=== PATIENT | female | born 1970 | race Caucasian/White ===

== ENCOUNTER 2019-05-05 17:45 | Emergency (ER) | payer OTHER ==
[2019-05-05 17:49] VITALS: RESP 18; TEMP 98
--- NOTE | 2019-05-05 19:36 | XR ---
PROCEDURE: XR foot complete RT - 3V DATE AND TIME: 05/05/2019 6:42 PM CLINICAL INDICATION: PHH; pain swelling TECHNIQUE: Department protocol COMPARISON: None FINDINGS: There is no fracture or malalignment. The soft tissues are unremarkable. IMPRESSION: NO ACUTE PROCESS.
--- NOTE | 2019-05-05 19:54 | ED ---
Lower Extremity Injury HPI - General Chief Complaint: Extremity Injury, Lower Stated Complaint: ankle swelling Time Seen by Provider: 05/05/19 17:57 Source: patient Mode of arrival: ambulatory Limitations: no limitations - History of Present Illness Initial Comments: 48-year-old female presented for right ankle swelling. Patient states the medial aspect of her ankle swollen. Patient states that the medial aspect of her ankle and as well as ankle joint is tender especially with range of motion she states she has some slight tenderness with weightbearing. Today patient states she has able to walk around. Patient states she does not know why the swelling started. She states she noticed it today. Patient denies swollen calf pain or calf she denies history of DVT pulmonary embolism she denies recent travel surgical procedures or CONSCIOUSNESS hormone use does improve with control use denies any family history of clotting disorders. Patient denies history of active cancer. Patient denies IV drug use. Patient has a chest pain shortness of breath. Patient denies any redness or warmth of the area. Patient states she is not sure if she did injure the area however she does do a lot of walking. Patient denies pain further history of gout. Patient is afebrile flulike symptoms. Patient is a difficulty lying flat or any other associated symptoms. Remaining review of system negative. - Related Data Previous Rx's Medication Instructions Recorded Ibuprofen 800 mg PO Q8H PRN 7 Days #21 tablet 05/05/19 Allergies Allergy/AdvReac Type Severity Reaction Status Date / Time codeine Allergy Swelling Verified 05/05/19 17:49 Penicillins Allergy Swelling Verified 05/05/19 17:49 Review of Systems ROS Statement: Those systems with pertinent positive or pertinent negative responses have been documented in the HPI. ROS Other: All systems not noted in ROS Statement are negative. Past Medical History Past Medical History: Asthma History of Any Multi-Drug Resistant Organisms: None Reported Past Surgical History: No Surgical Hx Reported Past Psychological History: No Psychological Hx Reported Smoking Status: Never smoker Past Alcohol Use History: Occasional Past Drug Use History: Marijuana General Exam - General Exam Comments Initial Comments: General: The patient is awake and alert, in no distress, and does not appear ac utely ill. Eye: Pupils are equal, round and reactive to light, extra-ocular movements are intact. No nystagmus. There is normal conjunctiva bilaterally. No signs of icterus. Cardiovascular: There is a regular rate and rhythm. No murmur, rub or gallop is appreciated. Respiratory: Lungs are clear to auscultation, respirations are non-labored, breath sounds are equal. No wheezes, stridor, rales, or rhonchi. Musculoskeletal: Normal ROM, no tenderness of the left ankle patient does have some tenderness of the dorsum of the right ankle. Mild soft tissue swelling noticed over the medial malleolus Strength 5/5. Sensation intact. DP pulses equal bilaterally 2+. Neurological: A&O x 3. CN II-XII intact grossly, There are no obvious motor or sensory deficits. Coordination appears grossly intact. Speech is normal. Skin: Skin is warm and dry and no rashes or lesions are noted. Negative Homans no pain to palpation of the calves bilaterally. No masses palpable or calf swelling noted. Psychiatric: Cooperative, appropriate mood & affect, normal judgment. Limitations: no limitations Course Vital Signs 05/05/19 05/05/19 17:46 20:23 Temperature 98 F 98 F Pulse Rate 77 80 Respiratory 18 18 Rate Blood Pressure 140/61 131/66 O2 Sat by Pulse 97 96 Oximetry Medical Decision Making - Medical Decision Making 48-year-old female presenting for atraumatic no known injury of the right ankle. States it is tender on the medial malleolus. Patient states her could've been injury but she is not sure of what exactly happened. Patient has no redness of the joint. Patient is able to range no pain out of proportion. Negative Homans. Patient has low wells score for deep venous thrombosis. D-dimer less than 0.5. At this time I do have low suspicion for blood clot. X-rays were negative for osseous process. At this time do feel patient is stable for discharge with rice instruction patient is to follow-up with primary care provider in 2 days for this complaint. Patient is agreeable to this care plan discharge at this time for my prescription for ibuprofen 800 mg. Did discuss the case by attending provider Dr. Paulino who is agreeable with this care plan. - Lab Data Lab Results 05/05/19 Range/Units 18:48 D-Dimer 0.45 (<0.60) mg/L FEU Disposition Clinical Impression: Right ankle swelling, Right ankle pain Disposition: HOME SELF-CARE Condition: Good Instructions (If sedation given, give patient instructions): R.I.C.E. Treatment (ED) Additional Instructions: Please use medication as discussed. Please follow-up with family doctor in the next 2 days. Please return to emergency room if the symptoms increase or worsen or for any other concerns. Prescriptions: Ibuprofen 800 mg PO Q8H PRN 7 Days #21 tablet PRN Reason: Pain Is patient prescribed a controlled substance at d/c from ED?: No Referrals: None,Stated [Primary Care Provider] - 1-2 days Time of Disposition: 20:20
--- NOTE | 2019-05-05 20:09 | XR ---
PROCEDURE: XR ankle complete RT - 3V DATE AND TIME: 05/05/2019 6:50 PM CLINICAL INDICATION: PHH; pain lateral mall TECHNIQUE: Department protocol COMPARISON: None FINDINGS: There is no fracture or malalignment. Mortise is intact. There is mild lateral soft tissue swelling. IMPRESSION: Mild lateral soft tissue swelling.
[2019-05-05] MEDS ORDERED: KETOROLAC 60 MG/2 ML VIAL IM STA (20:20)
[2019-05-05 20:24] VITALS: BP 131/66; PULSE 80
== END 2019-05-05 20:30 | disposition home or self-care (01) ==
LOC: EC 17:45
DX: M79.89 Other specified soft tissue disorders (principal); M25.571 Pain in right ankle and joints of right foot; R07.9 Chest pain, unspecified; R06.02 Shortness of breath; Z88.0 Allergy status to penicillin; Z88.5 Allergy status to narcotic agent
CPT/HCPCS: 36415; 85379; 73610; 73630; 99283; 96372; J1885